=== PATIENT | male | born 1990 | race Hispanic/Latino ===

== ENCOUNTER 2022-07-30 15:02 | Emergency (ER) | payer SELFPAY ==
[~2022-07-30] VITALS: Ht 180.3 cm; Wt 93.0 kg
== END 2022-07-30 17:11 | disposition home or self-care (01) ==
LOC: ER 15:12
DX: S60.011A Contusion of right thumb without damage to nail, initial encounter (principal); W20.8XXA Other cause of strike by thrown, projected or falling object, initial encounter; Y99.0 Civilian activity done for income or pay
CPT/HCPCS: 99283